=== PATIENT | male | born 1935 | race Caucasian/White ===

== ENCOUNTER 2021-03-05 18:24 | Inpatient (IN) | payer MEDICARE ==
[2021-03-05 19:01] LABS: #Monocytes 0.9 10x3/uL (0.0-1.1); #Neutrophils 8.4 10x3/uL (1.5-8.4); %Basophils 0.4 % (0.0-2.0); %Eosinophils 0.4 % (0.0-6.0); %Lymphocytes 8.7 % (18.0-47.0); %Monocytes 8.7 % (0.0-10.0); %Neutrophils 81.2 % (40.0-75.0); Hemoglobin 10.9 g/dL (13.5-17.5); Mean Corpuscular HGB CONC 33.5 g/dL (32.0-36.0); Mean Corpuscular Hemoglobin 32.9 pg (27.0-33.0); Mean Corpuscular Volume 98.2 fl (81.2-95.1); Mean Platelet Volume 10.8 fl (7.4-10.4); Platelet Count 250 10x3/uL (150-450); RBC Distribution Width 12.1 % (11.5-14.5); Red Blood Cell (RBC) Count 3.31 10x6/uL (4.32-5.72); White Blood Cell (WBC) Count 10.3 10x3/uL (3.5-10.5)
[2021-03-05] MEDS ORDERED: Cefepime 2 GM VIAL ONE (19:13)
[2021-03-05 19:14] LABS: ALT (SGPT) 12 U/L (8-55); AST (SGOT) 22 U/L (5-34); Albumin 3.8 g/dL (3.4-4.8); Alkaline Phosphatase 79 U/L (40-110); Anion Gap 15 mmol/L (10-20); BUN (Urea Nitrogen) 28 mg/dL (8.4-25.7); Bilirubin, Total 0.4 mg/dL (0.2-1.2); Calc. Creatinine Clearance 0 mL/min (70-130); Calcium 8.9 mg/dL (7.8-10.44); Carbon Dioxide 24 mmol/L (23-31); Chloride 100 mmol/L (98-107); Globulin 4.2 g/dL (2.4-3.5); Glucose 184 mg/dL (83-110); Potassium 4.9 mmol/L (3.5-5.1); Sodium 134 mmol/L (136-145)
[2021-03-05 19:45] LABS: CKMB 0.7 ng/mL (0-6.6)
[2021-03-05 20:28] LABS: SARS-CoV-2 NAA Rapid Test Not Detected (NotDetected)
[2021-03-05 21:41] LABS: Bilirubin Neg (Negative); Blood, Urine 10 (Negative); Clarity Slightly Cloudy (Clear); Glucose, Urine (Dipstick) Normal (Negative); Ketone, Urine Negative (Negative); Leukocyte 500 (Negative); Nitrite Negative (Negative); Protein, Urine (Dipstick) 100 mg/dl (Neg-Trace); Urobilinogen Normal mg/dL (Less than 2)
[2021-03-05 21:58] LABS: Bacteria/HPF 2+ HPF (None Seen); RBC/HPF 0-3 HPF (0-3); Squamous Epithelial None Seen HPF (0-3)
[2021-03-05 21:59] LABS: Triple Phosphate Crystal 1+ HPF (None Seen)
[2021-03-05 22:25] LABS: Lactic Acid 0.9 mmol/L (0.5-2.2)
[2021-03-05] MEDS ORDERED: Acetaminophen 325 MG TAB PO PRN (23:12)
[2021-03-05 23:30] VITALS: BMI 25.9
[2021-03-05] MEDS ORDERED: Carvedilol 3.125 MG TAB PO SCH (23:45)
[2021-03-06] MEDS: Sodium Chloride 0.9% 1,000 ML IV SCH ×3 (00:25→18:11)
[2021-03-06 00:29] LABS: Troponin I 0.037 ng/mL (< 0.028)
[2021-03-06 05:53] LABS: #Eosinphils 0.1 10x3/uL (0.0-0.5); #Neutrophils 6.7 10x3/uL (1.5-8.4); %Basophils 0.5 % (0.0-2.0); %Eosinophils 0.9 % (0.0-6.0); %Lymphocytes 10.9 % (18.0-47.0); %Monocytes 11.2 % (0.0-10.0); %Neutrophils 75.9 % (40.0-75.0); Hemoglobin 10.1 g/dL (13.5-17.5); Mean Corpuscular HGB CONC 33.1 g/dL (32.0-36.0); Mean Corpuscular Hemoglobin 33.1 pg (27.0-33.0); Platelet Count 225 10x3/uL (150-450); RBC Distribution Width 12.2 % (11.5-14.5); Red Blood Cell (RBC) Count 3.05 10x6/uL (4.32-5.72); White Blood Cell (WBC) Count 8.8 10x3/uL (3.5-10.5)
[2021-03-06 06:10] LABS: Anion Gap 17 mmol/L (10-20); BUN (Urea Nitrogen) 23 mg/dL (8.4-25.7); Calc. Creatinine Clearance 51 mL/min (70-130); Calcium 8.7 mg/dL (7.8-10.44); Carbon Dioxide 18 mmol/L (23-31); Chloride 105 mmol/L (98-107); Glucose 110 mg/dL (83-110); Magnesium 2.3 mg/dL (1.6-2.6); Potassium 4.4 mmol/L (3.5-5.1); Sodium 136 mmol/L (136-145)
[2021-03-06] MEDS: Carvedilol 6.25 MG TAB PO SCH ×2 (08:55→18:11)
[2021-03-06] MEDS: Cefepime 2 GM in Sodium Chloride 0.9% 100 ML IVPB SCH ×2 (08:55→20:05)
[2021-03-06] MEDS: Enoxaparin Sodium 40 MG/0.4 ML SYRINGE SC SCH (08:56)
[2021-03-06] MEDS: Vancomycin HCl 1 GM in Sodium Chloride 0.9% 250 ML 250 ML IVPB SCH (13:35)
[2021-03-06 19:57] LABS: SARS-CoV-2 IgG Ab Non-Reactive (NonReactive); SARS-CoV-2 IgG Index 0.02 S/CO (< 1.40)
[2021-03-06 19:59] LABS: SARS-CoV-2 PCR by NAA Not Detected (NotDetected)
[2021-03-06] MEDS ORDERED: Vancomycin HCl 1 GM in Sodium Chloride 0.9% 250 ML 300 ML IVPB SCH (20:00)
[2021-03-07] MEDS: Sodium Chloride 0.9% 1,000 ML IV SCH ×4 (00:39→22:51)
[2021-03-07 05:50] LABS: Troponin I 0.028 ng/mL (< 0.028)
[2021-03-07] MEDS ORDERED: Sodium Chloride 0.9% 100 ML ONE (06:59)
[2021-03-07] MEDS ORDERED: Cefepime 2 GM VIAL ONE (06:59)
[2021-03-07] MEDS: Cefepime 2 GM in Sodium Chloride 0.9% 100 ML IVPB SCH ×2 (08:12→20:24)
[2021-03-07] MEDS: Carvedilol 6.25 MG TAB PO SCH ×2 (08:12→17:44)
[2021-03-07] MEDS: Enoxaparin Sodium 40 MG/0.4 ML SYRINGE SC SCH (08:12)
[2021-03-07] MEDS: Vancomycin HCl 1 GM in Sodium Chloride 0.9% 250 ML 250 ML IVPB SCH (12:39)
[2021-03-08] MEDS: Vancomycin HCl 1 GM in Sodium Chloride 0.9% 250 ML 250 ML IVPB SCH ×2 (01:29→14:08)
[2021-03-08 01:53] LABS: Vancomycin, Trough 12.1 ug/mL
[2021-03-08] MEDS: Guaifenesin DM 100-10/5 ML UDCUP PO PRN ×4 (02:19→22:31)
[2021-03-08] MEDS: Enoxaparin Sodium 40 MG/0.4 ML SYRINGE SC SCH (08:00)
[2021-03-08] MEDS: Cefepime 2 GM in Sodium Chloride 0.9% 100 ML IVPB SCH ×2 (08:00→20:54)
[2021-03-08] MEDS: Carvedilol 6.25 MG TAB PO SCH ×2 (08:01→17:45)
[2021-03-08] MEDS: Sodium Chloride 0.9% 1,000 ML IV SCH ×3 (15:10→19:11)
[2021-03-09] MEDS: Vancomycin HCl 1 GM in Sodium Chloride 0.9% 250 ML 250 ML IVPB SCH (03:00)
[2021-03-09 07:59] VITALS: BP 162/90; TEMP 99.1
[2021-03-09] MEDS: Enoxaparin Sodium 40 MG/0.4 ML SYRINGE SC SCH (09:22)
[2021-03-09] MEDS: Carvedilol 6.25 MG TAB PO SCH (09:22)
[2021-03-09] MEDS: Cefepime 2 GM in Sodium Chloride 0.9% 100 ML IVPB SCH (09:25)
[2021-03-09] MEDS: Sodium Chloride 0.9% 1,000 ML IV SCH (09:26)
== END 2021-03-09 14:15 | DRG 871 ==
LOC: CSHERS 18:24 → CSHTELE 23:14
PROVIDERS: ADMIT Family Medicine; ATTEND Internal Medicine
DX: A41.52 Sepsis due to Pseudomonas (principal); J96.01 Acute respiratory failure with hypoxia; J15.1 Pneumonia due to Pseudomonas; Z20.822 Contact with and (suspected) exposure to COVID-19; F03.90 Unspecified dementia, unspecified severity, without behavioral disturbance, psychotic disturbance, mood disturbance, and anxiety; I12.9 Hypertensive chronic kidney disease with stage 1 through stage 4 chronic kidney disease, or unspecified chronic kidney disease; N18.32 Chronic kidney disease, stage 3b; Z79.899 Other long term (current) drug therapy
CPT/HCPCS: 36415; 51701; 71045; 80048; 80053; 80202; 81003; 81015; 82553; 82565; 83605; 83690; 83735; 84484; 84520; 85025; 86769; 87040; 87077; 87086; 87149; 87186; 87635; 87804; 93005; 96365; 96366; 96367; J0692; J1650; J1956; J3370; J3490; J7050; U0002; U0003; U0005

== ENCOUNTER 2022-03-05 16:26 | Emergency (ER) | payer MEDICARE ==
[2022-03-05 17:44] LABS: #Basophils 0.1 10x3/uL (0.0-0.2); #Eosinphils 0.3 10x3/uL (0.0-0.5); #Monocytes 0.6 10x3/uL (0.0-1.1); #Neutrophils 3.2 10x3/uL (1.5-8.4); %Basophils 1.4 % (0.0-2.0); %Eosinophils 4.4 % (0.0-6.0); %Lymphocytes 26.2 % (18.0-47.0); %Monocytes 10.1 % (0.0-10.0); %Neutrophils 57.5 % (40.0-75.0); Hemoglobin 10.4 g/dL (13.5-17.5); Mean Corpuscular Hemoglobin 32.8 pg (27.0-33.0); Mean Corpuscular Volume 99.4 fl (81.2-95.1); Mean Platelet Volume 10.1 fl (7.4-10.4); Platelet Count 249 10x3/uL (150-450); RBC Distribution Width 13.3 % (11.5-14.5); Red Blood Cell (RBC) Count 3.17 10x6/uL (4.32-5.72); White Blood Cell (WBC) Count 5.6 10x3/uL (3.5-10.5)
[2022-03-05 17:49] LABS: Actual Bicarbonate (HCO3v) 25 mEq/L (22-28); Base Excess -0.1 mEq/L (-2.0 to +3.0); Calcium, Ionized (venous) 1.17 mmol/L (1.16-1.32); Chloride (VBG) 104 mmol/L (98-106); Hemoglobin (Hb) 11.7 g/dL (12.6-17.4); Potassium (VBG) 4.61 mmol/L (3.70-5.30); Puncture Site Other Site; pH (venous) 7.39 (7.32-7.43)
[2022-03-05 17:52] LABS: Anion Gap 13 mmol/L (10-20); BUN (Urea Nitrogen) 19 mg/dL (8.4-25.7); Calc. Creatinine Clearance 0 mL/min (70-130); Calcium 9.3 mg/dL (7.8-10.44); Carbon Dioxide 24 mmol/L (23-31); Chloride 104 mmol/L (98-107); Glucose 107 mg/dL (83-110); Potassium 4.6 mmol/L (3.5-5.1); Sodium 136 mmol/L (136-145)
[2022-03-05] MEDS ORDERED: methylPREDNISolone Sod Succ/PF 125 MG/2 ML VIAL ONE (19:11)
== END 2022-03-05 20:30 | disposition home or self-care (01) ==
LOC: CSHERS 16:26
DX: I11.0 Hypertensive heart disease with heart failure (principal); I50.9 Heart failure, unspecified; J44.1 Chronic obstructive pulmonary disease with (acute) exacerbation
CPT/HCPCS: 36415; 71045; 80048; 82805; 83735; 83880; 85025; 93005; 96374; J2930; J7620

== ENCOUNTER 2022-05-03 13:16 | Inpatient (IN) | payer MEDICARE ==
[2022-05-03 14:13] LABS: #Basophils 0.1 10x3/uL (0.0-0.2); #Eosinphils 0.2 10x3/uL (0.0-0.5); #Monocytes 0.6 10x3/uL (0.0-1.1); #Neutrophils 3.3 10x3/uL (1.5-8.4); %Basophils 1.1 % (0.0-2.0); %Eosinophils 3.8 % (0.0-6.0); %Lymphocytes 23.3 % (18.0-47.0); %Monocytes 10.4 % (0.0-10.0); %Neutrophils 61.2 % (40.0-75.0); Hemoglobin 10.8 g/dL (13.5-17.5); Mean Corpuscular HGB CONC 34.1 g/dL (32.0-36.0); Mean Corpuscular Volume 96.9 fl (81.2-95.1); Mean Platelet Volume 10.4 fl (7.4-10.4); Platelet Count 238 10x3/uL (150-450); RBC Distribution Width 12.6 % (11.5-14.5); Red Blood Cell (RBC) Count 3.27 10x6/uL (4.32-5.72); White Blood Cell (WBC) Count 5.5 10x3/uL (3.5-10.5)
[2022-05-03 14:16] LABS: ALT (SGPT) 10 U/L (8-55); AST (SGOT) 18 U/L (5-34); Albumin 3.8 g/dL (3.4-4.8); Alkaline Phosphatase 81 U/L (40-110); Anion Gap 14 mmol/L (10-20); BUN (Urea Nitrogen) 21 mg/dL (8.4-25.7); Bilirubin, Total 0.3 mg/dL (0.2-1.2); CK (CPK) 32 U/L (30-200); Calc. Creatinine Clearance 0 mL/min (70-130); Calcium 9.3 mg/dL (7.8-10.44); Carbon Dioxide 23 mmol/L (23-31); Chloride 103 mmol/L (98-107); Globulin 3.3 g/dL (2.4-3.5); Glucose 123 mg/dL (83-110); Potassium 4.4 mmol/L (3.5-5.1); Protein, Total 7.1 g/dL (5.8-8.1); Sodium 136 mmol/L (136-145)
[2022-05-03] MEDS ORDERED: Boostrix 0.5 ML (Tdap) VIAL ONE (14:38)
[2022-05-03] MEDS ORDERED: Cefepime 2 GM VIAL ONE (14:38)
[2022-05-03] MEDS ORDERED: Vancomycin HCl 500 MG VIAL ONE (15:28)
[2022-05-03] MEDS ORDERED: Acetaminophen 325 MG TAB PO PRN (16:24)
[2022-05-03 17:25] VITALS: BMI 25.8
[2022-05-03] MEDS: Tamsulosin HCl 0.4 MG CAP PO SCH (20:26)
[2022-05-03] MEDS: Heparin 5,000 UNITS/ML VIAL SC SCH (20:26)
[2022-05-03] MEDS: Carvedilol 6.25 MG TAB PO SCH (20:26)
[2022-05-03] MEDS ORDERED: Famotidine 20 MG TAB PO SCH (21:00)
[2022-05-03] MEDS: Arformoterol 15 MCG/2 ML NEB NEB SCH (21:30)
[2022-05-03] MEDS: Budesonide 0.5 MG/2 ML NEB NEB SCH (21:30)
[2022-05-04] MEDS: Cefepime 1 GM in Sodium Chloride 0.9% 100 ML IVPB SCH ×2 (02:51→16:29)
[2022-05-04 04:33] LABS: Anion Gap 12 mmol/L (10-20); BUN (Urea Nitrogen) 20 mg/dL (8.4-25.7); Calc. Creatinine Clearance 57 mL/min (70-130); Calcium 8.7 mg/dL (7.8-10.44); Carbon Dioxide 23 mmol/L (23-31); Chloride 104 mmol/L (98-107); Glucose 97 mg/dL (83-110); Potassium 4.4 mmol/L (3.5-5.1); Sodium 135 mmol/L (136-145)
[2022-05-04 04:37] LABS: #Basophils 0.1 10x3/uL (0.0-0.2); #Eosinphils 0.2 10x3/uL (0.0-0.5); #Monocytes 0.6 10x3/uL (0.0-1.1); #Neutrophils 3.7 10x3/uL (1.5-8.4); %Basophils 1.1 % (0.0-2.0); %Eosinophils 4.3 % (0.0-6.0); %Lymphocytes 12.4 % (18.0-47.0); %Monocytes 11.8 % (0.0-10.0); %Neutrophils 70.2 % (40.0-75.0); Hemoglobin 10.6 g/dL (13.5-17.5); Mean Corpuscular HGB CONC 33.9 g/dL (32.0-36.0); Mean Corpuscular Hemoglobin 33.1 pg (27.0-33.0); Mean Corpuscular Volume 97.8 fl (81.2-95.1); Mean Platelet Volume 10.4 fl (7.4-10.4); Platelet Count 222 10x3/uL (150-450); RBC Distribution Width 12.5 % (11.5-14.5); White Blood Cell (WBC) Count 5.3 10x3/uL (3.5-10.5)
[2022-05-04] MEDS: Arformoterol 15 MCG/2 ML NEB NEB SCH ×2 (06:59→19:10)
[2022-05-04] MEDS: Budesonide 0.5 MG/2 ML NEB NEB SCH ×2 (07:01→19:10)
[2022-05-04] MEDS: Ferrous Sulfate 325 MG TAB PO SCH (09:47)
[2022-05-04] MEDS: Heparin 5,000 UNITS/ML VIAL SC SCH ×2 (09:47→22:30)
[2022-05-04] MEDS: Tamsulosin HCl 0.4 MG CAP PO SCH ×2 (09:48→22:30)
[2022-05-04] MEDS: Carvedilol 6.25 MG TAB PO SCH (09:48)
[2022-05-04] MEDS: Vancomycin HCl 1 GM in Sodium Chloride 0.9% 250 ML 250 ML IVPB SCH (09:48)
[2022-05-04] MEDS ORDERED: Famotidine 20 MG TAB PO SCH (21:00)
[2022-05-05] MEDS: Carvedilol 6.25 MG TAB PO SCH ×3 (00:29→22:04)
[2022-05-05] MEDS: Vancomycin HCl 1 GM in Sodium Chloride 0.9% 250 ML 250 ML IVPB SCH (03:51)
[2022-05-05] MEDS: Cefepime 1 GM in Sodium Chloride 0.9% 100 ML IVPB SCH ×2 (03:51→14:30)
[2022-05-05 05:39] LABS: Anion Gap 14 mmol/L (10-20); BUN (Urea Nitrogen) 15 mg/dL (8.4-25.7); Calc. Creatinine Clearance 66 mL/min (70-130); Calcium 8.8 mg/dL (7.8-10.44); Carbon Dioxide 22 mmol/L (23-31); Chloride 104 mmol/L (98-107); Glucose 90 mg/dL (83-110); Potassium 4.2 mmol/L (3.5-5.1); Sodium 136 mmol/L (136-145)
[2022-05-05] MEDS: Arformoterol 15 MCG/2 ML NEB NEB SCH ×2 (06:48→19:29)
[2022-05-05] MEDS: Budesonide 0.5 MG/2 ML NEB NEB SCH ×2 (06:49→19:30)
[2022-05-05] MEDS: Tamsulosin HCl 0.4 MG CAP PO SCH ×2 (08:58→22:04)
[2022-05-05] MEDS: Ferrous Sulfate 325 MG TAB PO SCH (08:58)
[2022-05-05] MEDS: Famotidine 20 MG TAB PO SCH ×2 (08:58→22:05)
[2022-05-05] MEDS: Heparin 5,000 UNITS/ML VIAL SC SCH ×2 (08:58→22:08)
[2022-05-05] MEDS: hydrALAZINE 10 MG TAB PO SCH ×2 (14:30→22:04)
[2022-05-06] MEDS: Cefepime 1 GM in Sodium Chloride 0.9% 100 ML IVPB SCH (02:55)
[2022-05-06 05:02] LABS: #Eosinphils 0.3 10x3/uL (0.0-0.5); #Monocytes 0.6 10x3/uL (0.0-1.1); #Neutrophils 2.2 10x3/uL (1.5-8.4); %Basophils 0.8 % (0.0-2.0); %Eosinophils 6.9 % (0.0-6.0); %Monocytes 14.6 % (0.0-10.0); %Neutrophils 58.4 % (40.0-75.0); Hemoglobin 10.8 g/dL (13.5-17.5); Mean Corpuscular HGB CONC 34.4 g/dL (32.0-36.0); Mean Corpuscular Hemoglobin 32.6 pg (27.0-33.0); Mean Corpuscular Volume 94.9 fl (81.2-95.1); Mean Platelet Volume 10.4 fl (7.4-10.4); Platelet Count 214 10x3/uL (150-450); RBC Distribution Width 12.3 % (11.5-14.5); Red Blood Cell (RBC) Count 3.31 10x6/uL (4.32-5.72); White Blood Cell (WBC) Count 3.8 10x3/uL (3.5-10.5)
[2022-05-06 05:30] LABS: Anion Gap 15 mmol/L (10-20); BUN (Urea Nitrogen) 12 mg/dL (8.4-25.7); Calc. Creatinine Clearance 73 mL/min (70-130); Calcium 8.8 mg/dL (7.8-10.44); Carbon Dioxide 21 mmol/L (23-31); Chloride 103 mmol/L (98-107); Glucose 89 mg/dL (83-110); Potassium 4.2 mmol/L (3.5-5.1); Sodium 135 mmol/L (136-145)
[2022-05-06] MEDS: Budesonide 0.5 MG/2 ML NEB NEB SCH (07:02)
[2022-05-06] MEDS: Arformoterol 15 MCG/2 ML NEB NEB SCH (07:02)
[2022-05-06] MEDS ORDERED: Amlodipine 5 MG TAB PO SCH (09:00)
[2022-05-06] MEDS: Ferrous Sulfate 325 MG TAB PO SCH (09:10)
[2022-05-06] MEDS: Carvedilol 6.25 MG TAB PO SCH (09:10)
[2022-05-06] MEDS: Famotidine 20 MG TAB PO SCH (09:10)
[2022-05-06] MEDS: hydrALAZINE 10 MG TAB PO SCH (09:10)
[2022-05-06] MEDS: Heparin 5,000 UNITS/ML VIAL SC SCH (09:10)
[2022-05-06] MEDS: Tamsulosin HCl 0.4 MG CAP PO SCH (09:11)
[2022-05-06 12:03] VITALS: BP 165/71; TEMP 98.1
== END 2022-05-06 16:00 | disposition home or self-care (01) | DRG 603 ==
LOC: CSHERS 13:16 → CSHTELE 15:59
PROVIDERS: ADMIT Internal Medicine; ATTEND Hospitalist
DX: L03.115 Cellulitis of right lower limb (principal); J44.9 Chronic obstructive pulmonary disease, unspecified; F03.90 Unspecified dementia, unspecified severity, without behavioral disturbance, psychotic disturbance, mood disturbance, and anxiety; I12.9 Hypertensive chronic kidney disease with stage 1 through stage 4 chronic kidney disease, or unspecified chronic kidney disease; N40.0 Benign prostatic hyperplasia without lower urinary tract symptoms; N18.32 Chronic kidney disease, stage 3b; S81.811A Laceration without foreign body, right lower leg, initial encounter; Z20.822 Contact with and (suspected) exposure to COVID-19; Z79.899 Other long term (current) drug therapy; Z79.2 Long term (current) use of antibiotics; Z79.82 Long term (current) use of aspirin
CPT/HCPCS: 36415; 74230; 80048; 80053; 82550; 83605; 85025; 87040; 87070; 87077; 87086; 87186; 87205; 90715; 94640; J0692; J1644; J3370; J3490; J7050; J7626; U0003; U0005

== ENCOUNTER 2022-05-13 15:16 | Emergency (ER) | payer MEDICARE ==
[2022-05-13 16:26] LABS: #Basophils 0.1 10x3/uL (0.0-0.2); #Eosinphils 0.2 10x3/uL (0.0-0.5); #Monocytes 0.7 10x3/uL (0.0-1.1); #Neutrophils 3.4 10x3/uL (1.5-8.4); %Basophils 1.2 % (0.0-2.0); %Lymphocytes 24.9 % (18.0-47.0); %Monocytes 11.2 % (0.0-10.0); %Neutrophils 58.5 % (40.0-75.0); Mean Corpuscular HGB CONC 34.5 g/dL (32.0-36.0); Mean Corpuscular Hemoglobin 33.1 pg (27.0-33.0); Mean Corpuscular Volume 96.1 fl (81.2-95.1); Mean Platelet Volume 9.9 fl (7.4-10.4); Platelet Count 230 10x3/uL (150-450); Red Blood Cell (RBC) Count 3.32 10x6/uL (4.32-5.72); White Blood Cell (WBC) Count 5.8 10x3/uL (3.5-10.5)
[2022-05-13 16:27] LABS: PTT 29.4 sec (22.0-33.0); Prothrombin Time 10.9 sec (9.5-12.1)
[2022-05-13 16:35] LABS: ALT (SGPT) 13 U/L (8-55); AST (SGOT) 21 U/L (5-34); Albumin 3.7 g/dL (3.4-4.8); Alkaline Phosphatase 70 U/L (40-110); Anion Gap 14 mmol/L (10-20); BUN (Urea Nitrogen) 18 mg/dL (8.4-25.7); Bilirubin, Total 0.3 mg/dL (0.2-1.2); Calc. Creatinine Clearance 0 mL/min (70-130); Calcium 9.2 mg/dL (7.8-10.44); Carbon Dioxide 26 mmol/L (23-31); Chloride 101 mmol/L (98-107); Globulin 3.6 g/dL (2.4-3.5); Glucose 97 mg/dL (83-110); Potassium 4.9 mmol/L (3.5-5.1); Protein, Total 7.3 g/dL (5.8-8.1); Sodium 136 mmol/L (136-145)
== END 2022-05-13 18:06 | disposition home or self-care (01) ==
LOC: CSHERS 15:16
DX: R19.7 Diarrhea, unspecified (principal); I10 Essential (primary) hypertension; I48.91 Unspecified atrial fibrillation; F03.90 Unspecified dementia, unspecified severity, without behavioral disturbance, psychotic disturbance, mood disturbance, and anxiety
CPT/HCPCS: 80053; 82274; 85025; 85610; 85730; 87324; 87449; 99284

== ENCOUNTER 2022-08-05 18:57 | Emergency (ER) | payer MEDICARE ==
[2022-08-05] MEDS ORDERED: Boostrix 0.5 ML (Tdap) VIAL (>/=7 yrs of age) ONE (20:48)
== END 2022-08-05 21:36 | disposition home or self-care (01) ==
LOC: CSHERS 18:57
DX: S01.01XA Laceration without foreign body of scalp, initial encounter (principal); T14.8XXA Other injury of unspecified body region, initial encounter; Z23 Encounter for immunization; W19.XXXA Unspecified fall, initial encounter
CPT/HCPCS: 70450; 72125; 90715

== ENCOUNTER 2022-08-07 09:32 | Inpatient (IN) | payer MEDICARE ==
[2022-08-07] MEDS ORDERED: Fentanyl 100 MCG/2 ML VIAL ONE (09:54)
[2022-08-07 10:59] LABS: SARS-CoV-2 NAA Rapid Test DETECTED (NotDetected)
[2022-08-07 11:10] LABS: #Basophils 0.1 10x3/uL (0.0-0.2); #Eosinphils 0.4 10x3/uL (0.0-0.5); #Monocytes 0.9 10x3/uL (0.0-1.1); #Neutrophils 5.7 10x3/uL (1.5-8.4); %Basophils 0.6 % (0.0-2.0); %Eosinophils 4.5 % (0.0-6.0); %Lymphocytes 12.3 % (18.0-47.0); %Monocytes 11.5 % (0.0-10.0); %Neutrophils 70.7 % (40.0-75.0); Hemoglobin 9.6 g/dL (13.5-17.5); Mean Corpuscular HGB CONC 34.9 g/dL (32.0-36.0); Mean Corpuscular Hemoglobin 33.8 pg (27.0-33.0); Mean Corpuscular Volume 96.8 fl (81.2-95.1); Mean Platelet Volume 10.1 fl (7.4-10.4); Platelet Count 184 10x3/uL (150-450); Red Blood Cell (RBC) Count 2.84 10x6/uL (4.32-5.72)
[2022-08-07 11:25] LABS: PTT 30.9 sec (22.0-33.0)
[2022-08-07 11:31] LABS: ALT (SGPT) 12 U/L (8-55); AST (SGOT) 21 U/L (5-34); Albumin 3.5 g/dL (3.4-4.8); Alkaline Phosphatase 57 U/L (40-110); Anion Gap 11 mmol/L (10-20); BUN (Urea Nitrogen) 17 mg/dL (8.4-25.7); Bilirubin, Total 0.9 mg/dL (0.2-1.2); Calc. Creatinine Clearance 0 mL/min (70-130); Calcium 8.9 mg/dL (7.8-10.44); Carbon Dioxide 25 mmol/L (23-31); Chloride 97 mmol/L (98-107); Estimated GFR 69; Globulin 3.2 g/dL (2.4-3.5); Glucose 113 mg/dL (83-110); Potassium 4.7 mmol/L (3.5-5.1); Protein, Total 6.7 g/dL (5.8-8.1); Sodium 128 mmol/L (136-145)
[2022-08-07] MEDS ORDERED: Acetaminophen 325 MG TAB PO PRN (12:50)
[2022-08-07] MEDS ORDERED: Ondansetron ODT 4 MG TAB PO PRN (12:50)
[2022-08-07 14:33] VITALS: BMI 30.7
[2022-08-07] MEDS: Sodium Chloride 0.9% 1,000 ML IV SCH (15:00)
[2022-08-07 19:27] LABS: Sodium 128 mmol/L (136-145)
[2022-08-07] MEDS: Morphine 4 MG/ML VIAL SLOW IVP PRN (20:50)
[2022-08-07] MEDS: Senokot 8.6 MG TAB PO SCH (22:46)
[2022-08-07] MEDS: Tamsulosin HCl 0.4 MG CAP PO SCH (23:09)
[2022-08-07 23:49] LABS: Bilirubin Negative (Negative); Blood, Urine Negative (Negative); Clarity Clear (Clear); Glucose, Urine (Dipstick) Negative (Negative); Ketone, Urine Trace mg/dL (Negative); Leukocyte Negative (Negative); Nitrite Negative (Negative); Protein, Urine (Dipstick) Negative (Neg-Trace); Urobilinogen 0.2 mg/dL (Less than 2)
[2022-08-07 23:58] LABS: Bacteria/HPF None Seen HPF (None Seen); RBC/HPF 0-3 HPF (0-3); Renal Epithelial 0-3 HPF (None Seen); Squamous Epithelial 0-3 HPF (0-3); Urine Culture Reflex No No; WBC/HPF 0-3 HPF (0-3)
[2022-08-08 00:15] LABS: Sodium 129 mmol/L (136-145)
[2022-08-08] MEDS: Sodium Chloride 0.9% 1,000 ML IV SCH ×2 (06:16→15:45)
[2022-08-08 06:46] LABS: #Eosinphils 0.4 10x3/uL (0.0-0.5); #Monocytes 0.8 10x3/uL (0.0-1.1); #Neutrophils 4.5 10x3/uL (1.5-8.4); %Basophils 0.6 % (0.0-2.0); %Eosinophils 6.3 % (0.0-6.0); %Lymphocytes 15.6 % (18.0-47.0); %Monocytes 11.1 % (0.0-10.0); %Neutrophils 66.3 % (40.0-75.0); Hemoglobin 9.2 g/dL (13.5-17.5); Mean Corpuscular HGB CONC 35.1 g/dL (32.0-36.0); Mean Corpuscular Hemoglobin 33.6 pg (27.0-33.0); Mean Corpuscular Volume 95.6 fl (81.2-95.1); Mean Platelet Volume 10.1 fl (7.4-10.4); Platelet Count 173 10x3/uL (150-450); RBC Distribution Width 13.2 % (11.5-14.5); Red Blood Cell (RBC) Count 2.74 10x6/uL (4.32-5.72); White Blood Cell (WBC) Count 6.8 10x3/uL (3.5-10.5)
[2022-08-08 06:53] LABS: Anion Gap 14 mmol/L (10-20); BUN (Urea Nitrogen) 16 mg/dL (8.4-25.7); Calc. Creatinine Clearance 78 mL/min (70-130); Calcium 8.6 mg/dL (7.8-10.44); Carbon Dioxide 22 mmol/L (23-31); Chloride 99 mmol/L (98-107); Estimated GFR 85; Glucose 101 mg/dL (83-110); Potassium 4.6 mmol/L (3.5-5.1); Sodium 130 mmol/L (136-145)
[2022-08-08] MEDS: Carvedilol 6.25 MG TAB PO SCH ×2 (09:13→18:05)
[2022-08-08] MEDS: Amlodipine 5 MG TAB PO SCH (09:13)
[2022-08-08] MEDS: Tamsulosin HCl 0.4 MG CAP PO SCH ×2 (09:14→21:25)
[2022-08-08] MEDS ORDERED: Neomycin-Polymyxin 1 ML AMP ONE (12:56)
[2022-08-08] MEDS ORDERED: EPINEPHrine 1 MG/ML AMP ONE (13:13)
[2022-08-08] MEDS ORDERED: Bupivacaine PF 0.5% 30 ML VIAL ONE (13:13)
[2022-08-08] MEDS ORDERED: Clindamycin/D5W 900 mg/50 ml Premix Bag ONE (13:31)
[2022-08-08] MEDS ORDERED: PROPOFOL 20 ML ONE (13:33)
[2022-08-08] MEDS ORDERED: ePHEDrine Sulfate 50 MG/10 ML VIAL ONE (13:33)
[2022-08-08] MEDS ORDERED: Fentanyl 100 MCG/2 ML VIAL ONE (13:33)
[2022-08-08] MEDS ORDERED: SUGAMMADEX SODIUM 200 MG/2 ML VIAL ONE (13:39)
[2022-08-08] MEDS ORDERED: PHENYLEPHRINE-NS 100 MCG/ML 10 ML SYRINGE ONE (14:47)
[2022-08-08] MEDS ORDERED: Ondansetron PF 4 MG/2 ML Vial ONE (14:47)
[2022-08-08] MEDS ORDERED: Rocuronium Bromide 10 MG/ML (10ML VIAL) ONE (14:47)
[2022-08-08] MEDS ORDERED: Lidocaine 1% PF 5 ML VIAL ONE (14:47)
[2022-08-08] MEDS ORDERED: Ondansetron PF 4 MG/2 ML Vial SLOW IVP PRN (15:02)
[2022-08-08] MEDS ORDERED: TETANUS, DIPHTHERIA TOX,ADULT (TDVAX) 0.5 ML VIAL IM ONE (15:02)
[2022-08-08] MEDS: Aspirin 81 mg Enteric Coated Tablet PO SCH (21:25)
[2022-08-08] MEDS: Senokot 8.6 MG TAB PO SCH (21:25)
[2022-08-08] MEDS: Clindamycin/D5W 900 MG in Premix Bag 1 BAG IVPB SCH (21:25)
[2022-08-08] MEDS: Morphine 2 MG/ML VIAL SLOW IVP PRN (21:33)
[2022-08-09] MEDS: Sodium Chloride 0.9% 1,000 ML IV SCH ×2 (02:32→17:12)
[2022-08-09] MEDS: Clindamycin/D5W 900 MG in Premix Bag 1 BAG IVPB SCH (06:04)
[2022-08-09 06:08] LABS: #Eosinphils 0.3 10x3/uL (0.0-0.5); #Monocytes 0.8 10x3/uL (0.0-1.1); #Neutrophils 4.2 10x3/uL (1.5-8.4); %Basophils 0.6 % (0.0-2.0); %Eosinophils 5.4 % (0.0-6.0); %Lymphocytes 13.4 % (18.0-47.0); %Monocytes 12.5 % (0.0-10.0); %Neutrophils 67.8 % (40.0-75.0); Anion Gap 13 mmol/L (10-20); BUN (Urea Nitrogen) 20 mg/dL (8.4-25.7); Calc. Creatinine Clearance 65 mL/min (70-130); Calcium 8.2 mg/dL (7.8-10.44); Carbon Dioxide 21 mmol/L (23-31); Chloride 102 mmol/L (98-107); Estimated GFR 70; Glucose 112 mg/dL (83-110); Hemoglobin 8.2 g/dL (13.5-17.5); Mean Corpuscular Hemoglobin 33.2 pg (27.0-33.0); Mean Corpuscular Volume 97.6 fl (81.2-95.1); Mean Platelet Volume 10.5 fl (7.4-10.4); Platelet Count 176 10x3/uL (150-450); Potassium 4.8 mmol/L (3.5-5.1); RBC Distribution Width 13.1 % (11.5-14.5); Red Blood Cell (RBC) Count 2.47 10x6/uL (4.32-5.72); Sodium 131 mmol/L (136-145); White Blood Cell (WBC) Count 6.3 10x3/uL (3.5-10.5)
[2022-08-09] MEDS: Tamsulosin HCl 0.4 MG CAP PO SCH ×2 (09:20→23:00)
[2022-08-09] MEDS: Carvedilol 6.25 MG TAB PO SCH ×2 (09:20→17:12)
[2022-08-09] MEDS: Aspirin 81 mg Enteric Coated Tablet PO SCH ×2 (09:20→23:25)
[2022-08-09] MEDS: Amlodipine 5 MG TAB PO SCH (09:20)
[2022-08-09] MEDS: Morphine 2 MG/ML VIAL SLOW IVP PRN (17:12)
[2022-08-09] MEDS: Senokot 8.6 MG TAB PO SCH (23:00)
[2022-08-10] MEDS: Morphine 2 MG/ML VIAL SLOW IVP PRN (04:32)
[2022-08-10] MEDS: Sodium Chloride 0.9% 1,000 ML IV SCH (05:39)
[2022-08-10 06:16] LABS: #Basophils 0.1 10x3/uL (0.0-0.2); #Eosinphils 0.4 10x3/uL (0.0-0.5); #Monocytes 0.6 10x3/uL (0.0-1.1); #Neutrophils 3.5 10x3/uL (1.5-8.4); %Basophils 0.9 % (0.0-2.0); %Eosinophils 6.8 % (0.0-6.0); %Monocytes 11.3 % (0.0-10.0); %Neutrophils 62.3 % (40.0-75.0); Hemoglobin 7.6 g/dL (13.5-17.5); Mean Corpuscular HGB CONC 34.5 g/dL (32.0-36.0); Mean Corpuscular Hemoglobin 34.5 pg (27.0-33.0); Mean Platelet Volume 9.9 fl (7.4-10.4); Platelet Count 178 10x3/uL (150-450); RBC Distribution Width 13.1 % (11.5-14.5); White Blood Cell (WBC) Count 5.6 10x3/uL (3.5-10.5)
[2022-08-10 06:24] LABS: Anion Gap 12 mmol/L (10-20); BUN (Urea Nitrogen) 19 mg/dL (8.4-25.7); Calc. Creatinine Clearance 72 mL/min (70-130); Calcium 8.4 mg/dL (7.8-10.44); Carbon Dioxide 21 mmol/L (23-31); Chloride 105 mmol/L (98-107); Estimated GFR 79; Glucose 103 mg/dL (83-110); Potassium 4.7 mmol/L (3.5-5.1); Sodium 133 mmol/L (136-145)
[2022-08-10] MEDS: Tamsulosin HCl 0.4 MG CAP PO SCH ×2 (09:14→21:25)
[2022-08-10] MEDS: Carvedilol 6.25 MG TAB PO SCH ×2 (09:14→17:34)
[2022-08-10] MEDS: Amlodipine 5 MG TAB PO SCH (09:14)
[2022-08-10] MEDS: Aspirin 81 mg Enteric Coated Tablet PO SCH ×2 (09:14→21:25)
[2022-08-10] MEDS: Morphine 4 MG/ML VIAL SLOW IVP PRN ×2 (09:15→14:24)
[2022-08-10] MEDS: Senokot 8.6 MG TAB PO SCH (21:25)
[2022-08-11 05:32] LABS: #Basophils 0.1 10x3/uL (0.0-0.2); #Eosinphils 0.3 10x3/uL (0.0-0.5); #Monocytes 0.6 10x3/uL (0.0-1.1); #Neutrophils 3.6 10x3/uL (1.5-8.4); %Basophils 0.9 % (0.0-2.0); %Eosinophils 5.6 % (0.0-6.0); %Lymphocytes 19.7 % (18.0-47.0); %Monocytes 11.2 % (0.0-10.0); %Neutrophils 62.4 % (40.0-75.0); Hemoglobin 7.8 g/dL (13.5-17.5); Mean Corpuscular HGB CONC 33.8 g/dL (32.0-36.0); Mean Corpuscular Hemoglobin 33.5 pg (27.0-33.0); Mean Corpuscular Volume 99.1 fl (81.2-95.1); Mean Platelet Volume 10.5 fl (7.4-10.4); Platelet Count 216 10x3/uL (150-450); RBC Distribution Width 13.2 % (11.5-14.5); Red Blood Cell (RBC) Count 2.33 10x6/uL (4.32-5.72); White Blood Cell (WBC) Count 5.7 10x3/uL (3.5-10.5)
[2022-08-11 05:36] LABS: Anion Gap 14 mmol/L (10-20); BUN (Urea Nitrogen) 16 mg/dL (8.4-25.7); Calc. Creatinine Clearance 80 mL/min (70-130); Calcium 8.6 mg/dL (7.8-10.44); Carbon Dioxide 21 mmol/L (23-31); Chloride 104 mmol/L (98-107); Estimated GFR 85; Glucose 101 mg/dL (83-110); Sodium 134 mmol/L (136-145)
[2022-08-11 05:38] LABS: Potassium 5.1 mmol/L (3.5-5.1)
[2022-08-11] MEDS: Carvedilol 6.25 MG TAB PO SCH (08:31)
[2022-08-11] MEDS: Aspirin 81 mg Enteric Coated Tablet PO SCH (08:31)
[2022-08-11] MEDS: Morphine 4 MG/ML VIAL SLOW IVP PRN ×2 (08:31→14:51)
[2022-08-11] MEDS: Tamsulosin HCl 0.4 MG CAP PO SCH (08:32)
[2022-08-11] MEDS: Amlodipine 5 MG TAB PO SCH (08:32)
[2022-08-11] MEDS ORDERED: Polyethylene Glycol 3350 17 GM Packet PO PRN (10:16)
[2022-08-11 11:38] VITALS: BP 124/64; TEMP 96.5
[2022-08-11] MEDS: Morphine 2 MG/ML VIAL SLOW IVP PRN (11:52)
[2022-08-11] MEDS ORDERED: Senokot S 8.6-50 MG TAB PO SCH (21:00)
== END 2022-08-11 15:22 | DRG 480 ==
LOC: CSHERS 09:32 → CSHERHOLD 11:36 → CSHTELE 14:20
PROVIDERS: ADMIT Student in an Organized Health Care Education/Training Program; ATTEND Hospitalist
PROC: 0QS704Z Reposition Left Upper Femur with Internal Fixation Device, Open Approach (ICD-10-PCS; principal; 2022-08-08)
DX: S72.042A Displaced fracture of base of neck of left femur, initial encounter for closed fracture (principal); U07.1 COVID-19; E87.1 Hypo-osmolality and hyponatremia; D62 Acute posthemorrhagic anemia; F03.90 Unspecified dementia, unspecified severity, without behavioral disturbance, psychotic disturbance, mood disturbance, and anxiety; Z66 Do not resuscitate; I10 Essential (primary) hypertension; N40.0 Benign prostatic hyperplasia without lower urinary tract symptoms; Z96.641 Presence of right artificial hip joint; W20.8XXA Other cause of strike by thrown, projected or falling object, initial encounter; Z20.822 Contact with and (suspected) exposure to COVID-19; Z88.8 Allergy status to other drugs, medicaments and biological substances; Z86.73 Personal history of transient ischemic attack (TIA), and cerebral infarction without residual deficits; Z79.899 Other long term (current) drug therapy; Z79.82 Long term (current) use of aspirin; Z98.890 Other specified postprocedural states; S01.01XA Laceration without foreign body of scalp, initial encounter; T14.8XXA Other injury of unspecified body region, initial encounter; Z23 Encounter for immunization; W19.XXXA Unspecified fall, initial encounter
CPT/HCPCS: 36415; 70450; 71045; 72125; 72170; 80048; 80053; 81001; 85025; 85610; 85730; 86850; 86900; 86901; 90471; 90715; 93005; 93306; 94760; 96374; C1713; J0171; J2270; J2405; J2704; J3010; J3490; J7050; S0020; U0002

== ENCOUNTER 2022-10-10 17:23 | Inpatient (IN) | payer MEDICARE ==
[2022-10-10 17:59] LABS: #Basophils 0.1 10x3/uL (0.0-0.2); #Monocytes 0.9 10x3/uL (0.0-1.1); #Neutrophils 13.6 10x3/uL (1.5-8.4); %Basophils 0.3 % (0.0-2.0); %Eosinophils 0.1 % (0.0-6.0); %Monocytes 5.5 % (0.0-10.0); %Neutrophils 88.7 % (40.0-75.0); Hemoglobin 10.7 g/dL (13.5-17.5); Mean Corpuscular HGB CONC 34.3 g/dL (32.0-36.0); Mean Corpuscular Hemoglobin 32.3 pg (27.0-33.0); Mean Corpuscular Volume 94.3 fl (81.2-95.1); Mean Platelet Volume 10.1 fl (7.4-10.4); Platelet Count 259 10x3/uL (150-450); RBC Distribution Width 12.9 % (11.5-14.5); Red Blood Cell (RBC) Count 3.31 10x6/uL (4.32-5.72); White Blood Cell (WBC) Count 15.3 10x3/uL (3.5-10.5)
[2022-10-10 18:11] LABS: ALT (SGPT) 14 U/L (8-55); AST (SGOT) 26 U/L (5-34); Albumin 3.9 g/dL (3.4-4.8); Alkaline Phosphatase 90 U/L (40-110); Anion Gap 13 mmol/L (10-20); BUN (Urea Nitrogen) 26 mg/dL (8.4-25.7); Bilirubin, Total 0.9 mg/dL (0.2-1.2); Calc. Creatinine Clearance 0 mL/min (70-130); Calcium 9.3 mg/dL (7.8-10.44); Carbon Dioxide 24 mmol/L (23-31); Chloride 97 mmol/L (98-107); Estimated GFR 47; Globulin 3.4 g/dL (2.4-3.5); Glucose 128 mg/dL (83-110); Protein, Total 7.3 g/dL (5.8-8.1); Sodium 129 mmol/L (136-145)
[2022-10-10] MEDS ORDERED: Cefepime 2 GM VIAL ONE ×2 (18:11→18:12)
[2022-10-10] MEDS ORDERED: Acetaminophen 325 MG TAB ONE (18:11)
[2022-10-10 18:40] LABS: SARS-CoV-2 NAA Rapid Test Not Detected (NotDetected)
[2022-10-10 20:43] LABS: Bilirubin Neg (Negative); Blood, Urine Negative (Negative); Clarity Clear (Clear); Glucose, Urine (Dipstick) Normal (Negative); Ketone, Urine 5 mg/dL (Negative); Leukocyte Negative (Negative); Nitrite Negative (Negative); Protein, Urine (Dipstick) 30 mg/dl (Neg-Trace); Urobilinogen Normal mg/dL (Less than 2)
[2022-10-10 20:57] LABS: Bacteria/HPF None Seen HPF (None Seen); RBC/HPF None Seen HPF (0-3); Squamous Epithelial None Seen HPF (0-3); WBC/HPF None Seen HPF (0-3)
[2022-10-10] MEDS ORDERED: Calcium Carbonate 500 MG ChewTAB PO PRN (21:39)
[2022-10-10] MEDS ORDERED: Senokot S 8.6-50 MG TAB PO PRN (21:39)
[2022-10-10] MEDS ORDERED: HYDROcodone/Acetaminophen 7.5/325 mg Tablet PO PRN (21:39)
[2022-10-10] MEDS ORDERED: Ondansetron PF 4 MG/2 ML Vial IVP PRN (21:39)
[2022-10-10] MEDS ORDERED: Albumin 25% 100 ML ONE (22:59)
[2022-10-10] MEDS ORDERED: NOREPINEPHRINE 8 MG/250 ML-D5W 250 ML ONE (23:58)
[2022-10-11] MEDS ORDERED: Albumin 25% 25 GM/100 ML BOT IVPB SCH (01:30)
[2022-10-11] MEDS ORDERED: NOREPINEPHRINE 8 MG/250 ML-D5W 250 ML IVPB SCH (01:30)
[2022-10-11] MEDS ORDERED: Furosemide 40 MG/4 ML VIAL SLOW IVP SCH (01:30)
[2022-10-11] MEDS ORDERED: Sodium Chloride 0.9% 1,000 ML IV SCH (01:30)
[2022-10-11 02:40] VITALS: BMI 26.9
[2022-10-11] MEDS: metroNIDAZOLE 500 MG in Premix Bag 1 BAG IVPB SCH ×3 (03:08→17:46)
[2022-10-11 03:58] LABS: #Basophils 0.1 10x3/uL (0.0-0.2); #Eosinphils 0.1 10x3/uL (0.0-0.5); #Monocytes 0.8 10x3/uL (0.0-1.1); #Neutrophils 13.4 10x3/uL (1.5-8.4); %Basophils 0.3 % (0.0-2.0); %Eosinophils 0.3 % (0.0-6.0); %Lymphocytes 4.7 % (18.0-47.0); %Monocytes 5.1 % (0.0-10.0); %Neutrophils 89.3 % (40.0-75.0); Hemoglobin 9.1 g/dL (13.5-17.5); Mean Corpuscular HGB CONC 33.8 g/dL (32.0-36.0); Mean Corpuscular Hemoglobin 32.4 pg (27.0-33.0); Mean Corpuscular Volume 95.7 fl (81.2-95.1); Mean Platelet Volume 10.4 fl (7.4-10.4); Platelet Count 171 10x3/uL (150-450); RBC Distribution Width 13.3 % (11.5-14.5); Red Blood Cell (RBC) Count 2.81 10x6/uL (4.32-5.72); White Blood Cell (WBC) Count 14.5 10x3/uL (3.5-10.5)
[2022-10-11 04:08] LABS: Anion Gap 14 mmol/L (10-20); BUN (Urea Nitrogen) 26 mg/dL (8.4-25.7); Calc. Creatinine Clearance 43 mL/min (70-130); Calcium 8.9 mg/dL (7.8-10.44); Carbon Dioxide 20 mmol/L (23-31); Chloride 103 mmol/L (98-107); Estimated GFR 46; Glucose 129 mg/dL (83-110); Potassium 4.2 mmol/L (3.5-5.1); Sodium 133 mmol/L (136-145)
[2022-10-11 04:30] LABS: Legionella Urinary Ag Negative (Negative); Strep pneumo Urine Ag NEGATIVE (NEGATIVE)
[2022-10-11 04:33] LABS: CKMB 2.8 ng/mL (0-6.6)
[2022-10-11] MEDS: Cefepime 1 GM in Sodium Chloride 0.9% 100 ML IVPB SCH ×2 (05:18→17:01)
[2022-10-11] MEDS ORDERED: Furosemide 20 MG/2 ML VIAL SLOW IVP SCH (06:45)
[2022-10-11] MEDS ORDERED: Budesonide 0.5 MG/2 ML NEB NEB SCH (08:00)
[2022-10-11] MEDS ORDERED: Carvedilol 6.25 MG TAB PO SCH (08:00)
[2022-10-11] MEDS ORDERED: AMLODIPINE BESYLATE 2.5 MG PO SCH (09:00)
[2022-10-11] MEDS: Enoxaparin Sodium 40 MG/0.4 ML SYRINGE SC SCH (09:32)
[2022-10-11] MEDS: Famotidine/PF 20 mg/2ml Vial SLOW IVP SCH (09:32)
[2022-10-11] MEDS ORDERED: Electrolyte Replacement Protocol FS SCH (09:45)
[2022-10-11 10:16] LABS: Phosphorus 2.6 mg/dL (2.3-4.7)
[2022-10-11 10:18] LABS: Anion Gap 13 mmol/L (10-20); BUN (Urea Nitrogen) 25 mg/dL (8.4-25.7); Calc. Creatinine Clearance 45 mL/min (70-130); Carbon Dioxide 22 mmol/L (23-31); Chloride 102 mmol/L (98-107); Estimated GFR 50; Glucose 113 mg/dL (83-110); Magnesium 1.6 mg/dL (1.6-2.6); Potassium 4.2 mmol/L (3.5-5.1); Sodium 133 mmol/L (136-145)
[2022-10-11] MEDS: guaiFENesin ER 600 MG TAB PO SCH ×2 (10:50→20:40)
[2022-10-11] MEDS: Finasteride 5 MG TAB PO SCH (10:50)
[2022-10-11] MEDS: Aspirin Chewable 81 MG TAB PO SCH (10:50)
[2022-10-11] MEDS: Sodium Chloride 1 GM TAB PO SCH ×2 (10:52→20:51)
[2022-10-11] MEDS ORDERED: Magnesium 2 GM/50 ML(in water) 2 GM in Premix Bag 1 BAG IVPB SCH (12:00)
[2022-10-11] MEDS ORDERED: Arformoterol 15 MCG/2 ML NEB NEB SCH (17:00)
[2022-10-11] MEDS: VANCOMYCIN 1.25 GM/250 ML BAG 1.25 GM in Premix Bag 1 BAG IVPB SCH (17:14)
[2022-10-11] MEDS: Senokot 8.6 MG TAB PO SCH (20:08)
[2022-10-11] MEDS: Tamsulosin HCl 0.4 MG CAP PO SCH (20:51)
[2022-10-11] MEDS ORDERED: Metoprolol Tartrate 25 MG TAB PO SCH (23:15)
[2022-10-12] MEDS: metroNIDAZOLE 500 MG in Premix Bag 1 BAG IVPB SCH ×3 (01:16→17:20)
[2022-10-12 03:54] LABS: #Basophils 0.1 10x3/uL (0.0-0.2); #Eosinphils 0.2 10x3/uL (0.0-0.5); #Monocytes 0.6 10x3/uL (0.0-1.1); #Neutrophils 5.7 10x3/uL (1.5-8.4); %Basophils 0.7 % (0.0-2.0); %Eosinophils 3.1 % (0.0-6.0); %Lymphocytes 12.3 % (18.0-47.0); %Monocytes 7.5 % (0.0-10.0); %Neutrophils 76.1 % (40.0-75.0); Mean Corpuscular Hemoglobin 32.6 pg (27.0-33.0); Platelet Count 170 10x3/uL (150-450); RBC Distribution Width 13.5 % (11.5-14.5); Red Blood Cell (RBC) Count 2.76 10x6/uL (4.32-5.72); White Blood Cell (WBC) Count 7.5 10x3/uL (3.5-10.5)
[2022-10-12 04:05] LABS: Magnesium 2.1 mg/dL (1.6-2.6)
[2022-10-12] MEDS: Cefepime 1 GM in Sodium Chloride 0.9% 100 ML IVPB SCH ×2 (05:11→17:12)
[2022-10-12] MEDS: Sodium Chloride 1 GM TAB PO SCH (08:45)
[2022-10-12] MEDS: Guaifenesin DM 100-10/5 ML UDCUP PO PRN (08:45)
[2022-10-12] MEDS: Aspirin Chewable 81 MG TAB PO SCH (08:45)
[2022-10-12] MEDS: Famotidine/PF 20 mg/2ml Vial SLOW IVP SCH (08:45)
[2022-10-12] MEDS: Finasteride 5 MG TAB PO SCH (08:45)
[2022-10-12] MEDS: Enoxaparin Sodium 40 MG/0.4 ML SYRINGE SC SCH (08:47)
[2022-10-12] MEDS: guaiFENesin ER 600 MG TAB PO SCH ×2 (08:47→20:47)
[2022-10-12 09:13] LABS: Anion Gap 14 mmol/L (10-20); BUN (Urea Nitrogen) 23 mg/dL (8.4-25.7); Calc. Creatinine Clearance 57 mL/min (70-130); Carbon Dioxide 19 mmol/L (23-31); Chloride 106 mmol/L (98-107); Estimated GFR 66; Glucose 106 mg/dL (83-110); Potassium 3.8 mmol/L (3.5-5.1); Sodium 135 mmol/L (136-145)
[2022-10-12 17:42] LABS: Vancomycin, Trough 15.7 ug/mL
[2022-10-12] MEDS: VANCOMYCIN 1.25 GM/250 ML BAG 1.25 GM in Premix Bag 1 BAG IVPB SCH (19:05)
[2022-10-12] MEDS: Senokot 8.6 MG TAB PO SCH (20:47)
[2022-10-12] MEDS: Tamsulosin HCl 0.4 MG CAP PO SCH (20:47)
[2022-10-13] MEDS: Sodium Chloride 1 GM TAB PO SCH ×3 (02:37→23:17)
[2022-10-13] MEDS: metroNIDAZOLE 500 MG in Premix Bag 1 BAG IVPB SCH ×3 (02:37→17:33)
[2022-10-13] MEDS: Cefepime 1 GM in Sodium Chloride 0.9% 100 ML IVPB SCH (05:34)
[2022-10-13] MEDS: Aspirin Chewable 81 MG TAB PO SCH (08:45)
[2022-10-13] MEDS: cefTRIAXone\\ROCEPHIN 2 GM in Sodium Chloride 0.9% 100 ML IVPB SCH (08:45)
[2022-10-13] MEDS: Enoxaparin Sodium 40 MG/0.4 ML SYRINGE SC SCH (08:45)
[2022-10-13] MEDS: guaiFENesin ER 600 MG TAB PO SCH (08:45)
[2022-10-13] MEDS: Famotidine/PF 20 mg/2ml Vial SLOW IVP SCH ×2 (08:46→23:15)
[2022-10-13] MEDS: Finasteride 5 MG TAB PO SCH (08:46)
[2022-10-13 09:31] LABS: #Eosinphils 0.3 10x3/uL (0.0-0.5); #Monocytes 0.6 10x3/uL (0.0-1.1); #Neutrophils 4.7 10x3/uL (1.5-8.4); %Basophils 0.5 % (0.0-2.0); %Eosinophils 4.8 % (0.0-6.0); %Lymphocytes 11.9 % (18.0-47.0); %Monocytes 9.4 % (0.0-10.0); %Neutrophils 73.1 % (40.0-75.0); Mean Corpuscular HGB CONC 33.4 g/dL (32.0-36.0); Mean Corpuscular Hemoglobin 32.3 pg (27.0-33.0); Mean Corpuscular Volume 96.5 fl (81.2-95.1); Mean Platelet Volume 10.2 fl (7.4-10.4); Platelet Count 225 10x3/uL (150-450); RBC Distribution Width 13.4 % (11.5-14.5); White Blood Cell (WBC) Count 6.5 10x3/uL (3.5-10.5)
[2022-10-13 09:44] LABS: Anion Gap 14 mmol/L (10-20); BUN (Urea Nitrogen) 15 mg/dL (8.4-25.7); Calc. Creatinine Clearance 73 mL/min (70-130); Calcium 9.2 mg/dL (7.8-10.44); Carbon Dioxide 20 mmol/L (23-31); Chloride 106 mmol/L (98-107); Estimated GFR 85; Glucose 98 mg/dL (83-110); Potassium 3.8 mmol/L (3.5-5.1); Sodium 136 mmol/L (136-145)
[2022-10-13] MEDS: Acetaminophen 325 MG TAB PO PRN (23:14)
[2022-10-13] MEDS: Guaifenesin DM 100-10/5 ML UDCUP PO PRN (23:14)
[2022-10-13] MEDS: Tamsulosin HCl 0.4 MG CAP PO SCH (23:15)
[2022-10-13] MEDS: Senokot 8.6 MG TAB PO SCH (23:17)
[2022-10-14] MEDS: metroNIDAZOLE 500 MG in Premix Bag 1 BAG IVPB SCH ×3 (02:24→18:49)
[2022-10-14] MEDS: guaiFENesin ER 600 MG TAB PO SCH ×2 (05:03→10:36)
[2022-10-14 09:24] LABS: #Basophils 0.1 10x3/uL (0.0-0.2); #Eosinphils 0.4 10x3/uL (0.0-0.5); #Monocytes 0.6 10x3/uL (0.0-1.1); #Neutrophils 3.3 10x3/uL (1.5-8.4); %Basophils 1.1 % (0.0-2.0); %Eosinophils 7.6 % (0.0-6.0); %Lymphocytes 17.3 % (18.0-47.0); %Monocytes 11.8 % (0.0-10.0); %Neutrophils 61.8 % (40.0-75.0); Hemoglobin 9.9 g/dL (13.5-17.5); Mean Corpuscular HGB CONC 33.9 g/dL (32.0-36.0); Mean Corpuscular Hemoglobin 32.4 pg (27.0-33.0); Mean Corpuscular Volume 95.4 fl (81.2-95.1); Mean Platelet Volume 10.1 fl (7.4-10.4); Platelet Count 220 10x3/uL (150-450); RBC Distribution Width 13.2 % (11.5-14.5); Red Blood Cell (RBC) Count 3.06 10x6/uL (4.32-5.72); White Blood Cell (WBC) Count 5.3 10x3/uL (3.5-10.5)
[2022-10-14 09:45] LABS: Anion Gap 13 mmol/L (10-20); BUN (Urea Nitrogen) 10 mg/dL (8.4-25.7); Calc. Creatinine Clearance 83 mL/min (70-130); Calcium 9.3 mg/dL (7.8-10.44); Carbon Dioxide 21 mmol/L (23-31); Chloride 104 mmol/L (98-107); Estimated GFR 88; Glucose 96 mg/dL (83-110); Potassium 3.6 mmol/L (3.5-5.1); Sodium 134 mmol/L (136-145)
[2022-10-14] MEDS: Aspirin Chewable 81 MG TAB PO SCH (10:36)
[2022-10-14] MEDS: Famotidine/PF 20 mg/2ml Vial SLOW IVP SCH ×2 (10:37→22:24)
[2022-10-14] MEDS: Enoxaparin Sodium 40 MG/0.4 ML SYRINGE SC SCH (10:37)
[2022-10-14] MEDS: Finasteride 5 MG TAB PO SCH (10:37)
[2022-10-14] MEDS: Sodium Chloride 1 GM TAB PO SCH ×2 (14:31→22:26)
[2022-10-14] MEDS: cefTRIAXone\\ROCEPHIN 2 GM in Sodium Chloride 0.9% 100 ML IVPB SCH (14:39)
[2022-10-14] MEDS: Guaifenesin DM 100-10/5 ML UDCUP PO PRN (22:24)
[2022-10-14] MEDS: Acetaminophen 325 MG TAB PO PRN (22:24)
[2022-10-14] MEDS: Tamsulosin HCl 0.4 MG CAP PO SCH (22:25)
[2022-10-15] MEDS: metroNIDAZOLE 500 MG in Premix Bag 1 BAG IVPB SCH ×2 (02:55→10:12)
[2022-10-15] MEDS: guaiFENesin ER 600 MG TAB PO SCH ×2 (03:28→10:12)
[2022-10-15] MEDS: Senokot 8.6 MG TAB PO SCH (03:29)
[2022-10-15] MEDS: Famotidine/PF 20 mg/2ml Vial SLOW IVP SCH (08:18)
[2022-10-15] MEDS: cefTRIAXone\\ROCEPHIN 2 GM in Sodium Chloride 0.9% 100 ML IVPB SCH (08:18)
[2022-10-15 09:01] LABS: #Basophils 0.1 10x3/uL (0.0-0.2); #Eosinphils 0.4 10x3/uL (0.0-0.5); #Monocytes 0.6 10x3/uL (0.0-1.1); #Neutrophils 2.6 10x3/uL (1.5-8.4); %Basophils 1.2 % (0.0-2.0); %Eosinophils 7.7 % (0.0-6.0); %Lymphocytes 24.5 % (18.0-47.0); %Monocytes 12.2 % (0.0-10.0); Hemoglobin 9.8 g/dL (13.5-17.5); Mean Corpuscular HGB CONC 33.8 g/dL (32.0-36.0); Mean Corpuscular Hemoglobin 32.7 pg (27.0-33.0); Mean Corpuscular Volume 96.7 fl (81.2-95.1); Mean Platelet Volume 9.8 fl (7.4-10.4); Platelet Count 232 10x3/uL (150-450); RBC Distribution Width 13.3 % (11.5-14.5); White Blood Cell (WBC) Count 4.8 10x3/uL (3.5-10.5)
[2022-10-15 09:21] LABS: Anion Gap 12 mmol/L (10-20); BUN (Urea Nitrogen) 8 mg/dL (8.4-25.7); Calc. Creatinine Clearance 80 mL/min (70-130); Carbon Dioxide 23 mmol/L (23-31); Chloride 106 mmol/L (98-107); Estimated GFR 87; Glucose 89 mg/dL (83-110); Potassium 3.5 mmol/L (3.5-5.1); Sodium 137 mmol/L (136-145)
[2022-10-15] MEDS ORDERED: Potassium Chloride 20 MEQ TAB PO SCH (10:00)
[2022-10-15] MEDS: Finasteride 5 MG TAB PO SCH (10:12)
[2022-10-15] MEDS: Aspirin Chewable 81 MG TAB PO SCH (10:12)
[2022-10-15] MEDS: Enoxaparin Sodium 40 MG/0.4 ML SYRINGE SC SCH (10:12)
[2022-10-15] MEDS: Sodium Chloride 1 GM TAB PO SCH (10:12)
[2022-10-15] MEDS ORDERED: Potassium Bicarbonate/Cit Ac 20 MEQ TAB PO SCH (10:15)
[2022-10-15 11:49] VITALS: BP 142/73; TEMP 98.5
== END 2022-10-15 11:30 | disposition home or self-care (01) | DRG 871 ==
LOC: CSHERS 17:23 → CSHIMCU 10-11 01:09 → CSHTELE 10-12 15:23
PROVIDERS: ADMIT Student in an Organized Health Care Education/Training Program; ATTEND Family Medicine
PROC: 30233J1 Transfusion of Nonautologous Serum Albumin into Peripheral Vein, Percutaneous Approach (ICD-10-PCS; principal; 2022-10-11)
PROC: 3E033XZ Introduction of Vasopressor into Peripheral Vein, Percutaneous Approach (ICD-10-PCS; 2022-10-11)
PROC: 3E03329 Introduction of Other Anti-infective into Peripheral Vein, Percutaneous Approach (ICD-10-PCS; 2022-10-11)
DX: A41.89 Other specified sepsis (principal); G93.41 Metabolic encephalopathy; J96.01 Acute respiratory failure with hypoxia; J69.0 Pneumonitis due to inhalation of food and vomit; R65.21 Severe sepsis with septic shock; N17.9 Acute kidney failure, unspecified; E87.1 Hypo-osmolality and hyponatremia; J90 Pleural effusion, not elsewhere classified; E87.20 Acidosis, unspecified; I50.32 Chronic diastolic (congestive) heart failure; F03.90 Unspecified dementia, unspecified severity, without behavioral disturbance, psychotic disturbance, mood disturbance, and anxiety; Z20.822 Contact with and (suspected) exposure to COVID-19; I27.20 Pulmonary hypertension, unspecified; N40.0 Benign prostatic hyperplasia without lower urinary tract symptoms; I48.91 Unspecified atrial fibrillation; Z96.641 Presence of right artificial hip joint; R13.10 Dysphagia, unspecified; Z66 Do not resuscitate; E86.0 Dehydration; Z88.0 Allergy status to penicillin; Z79.82 Long term (current) use of aspirin; Z79.899 Other long term (current) drug therapy; Z95.0 Presence of cardiac pacemaker; Z98.890 Other specified postprocedural states; I69.391 Dysphagia following cerebral infarction
CPT/HCPCS: 36415; 71045; 71250; 76770; 80048; 80053; 80202; 81003; 81015; 82553; 83605; 83735; 83880; 84100; 84145; 84443; 84484; 85025; 87040; 87070; 87077; 87081; 87149; 87186; 87205; 87449; 87899; 89220; 93005; 93970; 94640; 94760; J0692; J0696; J1650; J1940; J3370; J3475; J3490; J7050; J7620; P9047; S0028

== ENCOUNTER 2022-10-16 20:23 | Emergency (ER) | payer MEDICARE ==
[2022-10-16 21:21] LABS: ALT (SGPT) 9 U/L (8-55); AST (SGOT) 24 U/L (5-34); Albumin 3.6 g/dL (3.4-4.8); Alkaline Phosphatase 68 U/L (40-110); Anion Gap 13 mmol/L (10-20); BUN (Urea Nitrogen) 10 mg/dL (8.4-25.7); Bilirubin, Total 0.3 mg/dL (0.2-1.2); Calc. Creatinine Clearance 0 mL/min (70-130); Calcium 9.5 mg/dL (7.8-10.44); Carbon Dioxide 24 mmol/L (23-31); Chloride 105 mmol/L (98-107); Estimated GFR 80; Globulin 3.6 g/dL (2.4-3.5); Glucose 133 mg/dL (83-110); Magnesium 1.5 mg/dL (1.6-2.6); Potassium 3.9 mmol/L (3.5-5.1); Protein, Total 7.2 g/dL (5.8-8.1); Sodium 138 mmol/L (136-145)
[2022-10-16 21:46] LABS: #Basophils 0.1 10x3/uL (0.0-0.2); #Eosinphils 0.3 10x3/uL (0.0-0.5); #Monocytes 0.7 10x3/uL (0.0-1.1); %Basophils 0.9 % (0.0-2.0); %Eosinophils 5.7 % (0.0-6.0); %Lymphocytes 29.4 % (18.0-47.0); %Monocytes 12.2 % (0.0-10.0); %Neutrophils 51.3 % (40.0-75.0); Hemoglobin 10.3 g/dL (13.5-17.5); Mean Corpuscular HGB CONC 33.2 g/dL (32.0-36.0); Mean Corpuscular Volume 96.3 fl (81.2-95.1); Mean Platelet Volume 9.9 fl (7.4-10.4); Platelet Count 282 10x3/uL (150-450); RBC Distribution Width 13.6 % (11.5-14.5); Red Blood Cell (RBC) Count 3.22 10x6/uL (4.32-5.72); White Blood Cell (WBC) Count 5.8 10x3/uL (3.5-10.5)
[2022-10-17 01:30] LABS: Band 1 % (5-11); Eosinophils 8 % (0-10); Lymphocytes 19 % (21-51); Monocytes 6 % (0-10); Reactive Lymphocytes 2 % (0-10)
[2022-10-17 01:32] LABS: Hypochromia SLIGHT = 6-15 cells (100X) (0-5/hpf); Macrocytosis SLIGHT = 6-15 cells (100X) (0-5/hpf); Platelet Morphology Comment Appears Adequate
== END 2022-10-16 23:08 | disposition home or self-care (01) ==
LOC: CSHERS 20:23
DX: I48.91 Unspecified atrial fibrillation (principal); I10 Essential (primary) hypertension; Z79.899 Other long term (current) drug therapy
CPT/HCPCS: 36415; 71045; 80053; 83735; 83880; 84484; 85025; 93005